=== PATIENT | male | born 1995 | race Hispanic/Latino ===

== ENCOUNTER 2020-11-16 00:58 | Emergency (ER) | payer SELFPAY ==
[~2020-11-16] VITALS: Ht 170.2 cm; Wt 68.0 kg
[2020-11-16] MEDS ORDERED: ACETAMINOPHEN 325 MG TAB PO ONE (01:15)
[2020-11-16] MEDS ORDERED: DEXAMETHASONE SOD PHOS 10 MG/1 ML VIAL IV ONE (01:15)
[2020-11-16] MEDS ORDERED: ACETAMINOPHEN 325 MG TAB ONE (01:19)
[2020-11-16] MEDS ORDERED: PENICILLIN G BENZATHINE LA 1.2 MU TBX IM STA (01:19)
[2020-11-16] MEDS ORDERED: PENICILLIN G BENZATHINE LA 1.2 MU TBX ONE (01:26)
[2020-11-16] MEDS ORDERED: DEXAMETHASONE SOD PHOS 10 MG/1 ML VIAL ONE (01:26)
== END 2020-11-16 02:05 | disposition home or self-care (01) ==
LOC: ER 01:21
DX: J02.0 Streptococcal pharyngitis (principal); R50.9 Fever, unspecified
CPT/HCPCS: 99282; J0561; J1100